=== PATIENT | male | born 1970 | race Caucasian/White ===

== ENCOUNTER → 2025-08-03 15:49 | Outpatient (CLI) | payer OTHER, SELFPAY ==
--- NOTE | 2025-08-03 15:55 | DI.MRI.S_ITS ---
PROCEDURE: MR SHOULDER RT WO CON INDICATIONS: Incomplete rotator cuff tear TECHNIQUE: Noncontrast oblique coronal T2 fast spin echo with fat saturation, oblique sagittal T1 spin echo and T2 fast spin echo with fat saturation, axial T1 spin echo and T2 fast spin echo with fat saturation through the shoulder. COMPARISON: None. FINDINGS: Quality: Adequate. Tendons: Rotator cuff tendons: Full-thickness full width supraspinatus tendon tear from the insertion with retraction approximately 1.6 centimeter. Additional delaminating articular surface tearing continues medially. Full-thickness tearing extends into the anterior fibers of the infraspinatus tendon at the insertion. Teres minor tendon is intact. Near full-thickness interstitial tearing of the insertional 1/3 of the subscapularis tendon. Long head of biceps tendon: Partial tear at the bicipital groove moderate tendon sheath fluid. No dislocation. Muscles: No disproportionate fatty degeneration of the rotator cuff musculature. Acromioclavicular joint: Mild hypertrophic degenerative changes.. Glenohumeral joint: Labrum: Superior labral anterior posterior tearing.. Cartilage: No focal defect. Fluid: Small effusion. Capsule: No pericapsular inflammation or scarring. Alignment: No dislocation. Bursa: Subacromial/subdeltoid bursa: Distended. Subcoracoid bursa: Nondistended. Bones: No fracture. IMPRESSION: Full-thickness full width supraspinatus tendon tear. Full-thickness partial width infraspinatus tendon tear. Near full-thickness interstitial subscapularis tendon tear. Partial tear long head of biceps tendon. Superior labral tearing which may be degenerative. Acromioclavicular arthropathy. Dictated by: Felix Hair M.D. on 08/05/2025 at 12:47 Approved by: Felix Hair M.D. on 08/05/2025 at 12:56
== END ==
DX: M75.121 Complete rotator cuff tear or rupture of right shoulder, not specified as traumatic (principal); S46.111A Strain of muscle, fascia and tendon of long head of biceps, right arm, initial encounter; S43.491A Other sprain of right shoulder joint, initial encounter; M19.011 Primary osteoarthritis, right shoulder
CPT/HCPCS: 73221